=== PATIENT | male | born 1965 | race African-American/Black ===

== ENCOUNTER 2023-04-26 12:53 | Inpatient (IN) | payer OTHER ==
[2023-04-26 13:53] VITALS: BMI 19.6
[2023-04-26] MEDS ORDERED: LOPERAMIDE HCL 2 MG CAPSULE PO PRN (16:17)
[2023-04-26] MEDS ORDERED: NALOXONE HCL 0.4 MG/ML VIAL IM PRN (16:17)
[2023-04-26] MEDS ORDERED: NALOXONE HCL (KLOXXADO) 8 MG SPRAY NS PRN (16:17)
[2023-04-26] MEDS ORDERED: ONDANSETRON *ODT* 4 MG TABLET SL PRN (16:17)
[2023-04-26] MEDS ORDERED: hydrOXYzine PAMOATE 25 MG CAPSULE (FP) PO PRN (16:17)
[2023-04-26] MEDS ORDERED: BENZOCAINE/MENTHOL (CHLORASEPTIC ) LOZENGE MM PRN (16:17)
[2023-04-26] MEDS ORDERED: IBUPROFEN 400 MG TABLET (FP) PO PRN (16:17)
[2023-04-26] MEDS ORDERED: DICYCLOMINE HCL 10 MG CAPSULE PO PRN (16:17)
[2023-04-26] MEDS ORDERED: ACETAMINOPHEN 325 MG TABLET (FP) PO PRN (16:17)
[2023-04-26] MEDS ORDERED: POLYETHYLENE GLYCOL (HEALTHYLAX) 3350 17 GM PACKET PO PRN (16:17)
[2023-04-26] MEDS ORDERED: BISMUTH SUBSALICYLATE 524 MG/30 ML PO PRN (16:17)
[2023-04-26] MEDS ORDERED: BENZONATATE 200 MG CAPSULE PO PRN (16:17)
[2023-04-26] MEDS ORDERED: MAGNESIUM HYDROX 2400MG/30ML ORAL SUSPENSION 30 ML CUP PO PRN (16:17)
[2023-04-26] MEDS ORDERED: IBUPROFEN 600 MG TABLET (FP) PO PRN (16:17)
[2023-04-26] MEDS ORDERED: METHOCARBAMOL 500 MG TABLET PO PRN (16:17)
[2023-04-26] MEDS ORDERED: LORazepam 1 MG TABLET PO PRN (16:17)
[2023-04-26] MEDS ORDERED: guaiFENesin 600 MG TABLET.ER (FP) PO PRN (16:17)
[2023-04-26] MEDS ORDERED: MAG HYDROX/AL HYDROX/SIMETH 30 ML UNIT-DOSE CUP PO PRN (16:17)
[2023-04-26] MEDS: INSULIN SLIDING SCALE (NOVOLOG) 1 VIAL SQ SCH (18:15)
[2023-04-26] MEDS: PRENATAL VITAMINS W/ FOLIC ACID TABLET (FP) PO SCH (18:16)
[2023-04-26] MEDS ORDERED: PRENATAL VITAMINS W/ FOLIC ACID TABLET (FP) PO ONE (18:19)
[2023-04-26] MEDS ORDERED: MELATONIN 5 MG TABLETS PO SCH (22:00)
[2023-04-26] MEDS: LORazepam 2 MG TABLET PO SCH (22:08)
[2023-04-26] MEDS: THIAMINE HCL 100 MG TABLET (FP) PO SCH (22:08)
[2023-04-27] MEDS: LORazepam 2 MG TABLET PO SCH ×4 (05:43→22:59)
[2023-04-27] MEDS: INSULIN SLIDING SCALE (NOVOLOG) 1 VIAL SQ SCH ×3 (07:40→17:40)
[2023-04-27] MEDS: PRENATAL VITAMINS W/ FOLIC ACID TABLET (FP) PO SCH (09:48)
[2023-04-27] MEDS: QUEtiapine FUMARATE 50 MG TABLET PO SCH (10:17)
[2023-04-27] MEDS: DULoxetine HCL 60 MG CAPSULE.DR PO SCH (10:19)
[2023-04-27 11:49] LABS: HEMATOCRIT 35.9 % (35.4-49); HEMOGLOBIN 12.4 GM/dL (11.7-16.9); MCH 31.1 pg (25.7-33.7); MCHC 34.5 g/dl (32.0-35.9); MEAN CELL VOLUME 90.2 fl (80-96); PLATELET COUNT 308 10^3/uL (134-434); RBC 3.98 M/mm3 (4.00-5.60); RDW 13.9 % (11.9-15.9); WHITE BLOOD COUNT 4.5 K/mm3 (4.0-10.0)
[2023-04-27 12:03] LABS: POTASSIUM 4.6 mmol/L (3.5-5.1)
[2023-04-27 12:15] LABS: CALCIUM 9.2 mg/dL (8.5-10.1)
[2023-04-27 12:16] LABS: ALBUMIN 3.6 g/dl (3.4-5.0); BLOOD UREA NITROGEN 10.6 mg/dL (7-18)
[2023-04-27 12:18] LABS: CREATININE 0.9 mg/dL (0.55-1.3)
[2023-04-27 12:21] LABS: BILIRUBIN,TOTAL 0.5 mg/dL (0.2-1)
[2023-04-27] MEDS: LACTULOSE 20 GM/30 ML UDC (FOR ORAL USE ONLY) PO SCH ×2 (15:43→22:59)
[2023-04-27] MEDS: metFORMIN HCL 500 MG TABLET (FP) PO SCH (15:53)
[2023-04-27] MEDS: ATORVASTATIN CA 20 MG TABLET (FP) PO SCH (22:59)
[2023-04-27] MEDS: THIAMINE HCL 100 MG TABLET (FP) PO SCH (22:59)
[2023-04-27] MEDS: QUEtiapine FUMARATE 200 MG TABLET PO SCH (22:59)
[2023-04-27] MEDS: MELATONIN 5 MG TABLETS PO SCH (23:00)
[2023-04-28] MEDS: LORazepam 1 MG TABLET PO SCH ×4 (05:17→22:15)
[2023-04-28] MEDS: LACTULOSE 20 GM/30 ML UDC (FOR ORAL USE ONLY) PO SCH ×3 (05:17→22:15)
[2023-04-28] MEDS: INSULIN SLIDING SCALE (NOVOLOG) 1 VIAL SQ SCH ×3 (06:43→17:09)
[2023-04-28] MEDS: metFORMIN HCL 500 MG TABLET (FP) PO SCH (06:43)
[2023-04-28] MEDS: QUEtiapine FUMARATE 50 MG TABLET PO SCH (10:15)
[2023-04-28] MEDS: DULoxetine HCL 60 MG CAPSULE.DR PO SCH (10:16)
[2023-04-28] MEDS: PRENATAL VITAMINS W/ FOLIC ACID TABLET (FP) PO SCH (10:16)
[2023-04-28] MEDS ORDERED: INSULIN (NOVOLOG) ASPART 100 UNITS/ML 10ML VIAL ONE (16:42)
[2023-04-28] MEDS: THIAMINE HCL 100 MG TABLET (FP) PO SCH (22:15)
[2023-04-28] MEDS: ATORVASTATIN CA 20 MG TABLET (FP) PO SCH (22:15)
[2023-04-28] MEDS: QUEtiapine FUMARATE 200 MG TABLET PO SCH (22:15)
[2023-04-28] MEDS: MELATONIN 5 MG TABLETS PO SCH (22:15)
[2023-04-29] MEDS ORDERED: LORazepam 0.5 MG TABLET PO PRN
[2023-04-29] MEDS: LORazepam 0.5 MG TABLET PO SCH ×3 (05:32→17:11)
[2023-04-29] MEDS: LACTULOSE 20 GM/30 ML UDC (FOR ORAL USE ONLY) PO SCH ×2 (05:33→13:52)
[2023-04-29] MEDS: metFORMIN HCL 500 MG TABLET (FP) PO SCH (06:02)
[2023-04-29] MEDS: INSULIN SLIDING SCALE (NOVOLOG) 1 VIAL SQ SCH ×3 (06:03→17:12)
[2023-04-29] MEDS: QUEtiapine FUMARATE 50 MG TABLET PO SCH (10:13)
[2023-04-29] MEDS: PRENATAL VITAMINS W/ FOLIC ACID TABLET (FP) PO SCH (10:13)
[2023-04-29] MEDS: DULoxetine HCL 60 MG CAPSULE.DR PO SCH (10:15)
[2023-04-29 18:19] VITALS: BP 112/66; PULSE 83; RESP 17; TEMP 97.8
[2023-04-30] MEDS ORDERED: LORazepam 0.5 MG TABLET PO ONE (05:00)
== END 2023-04-29 17:10 | disposition home or self-care (01) | DRG 897 ==
LOC: YASAS 12:53 → Y6N 18:10
PROVIDERS: ADMIT Allergy & Immunology; ATTEND Surgery
PROC: HZ2ZZZZ Detoxification Services for Substance Abuse Treatment (ICD-10-PCS; principal; 2023-04-26)
DX: F10.230 Alcohol dependence with withdrawal, uncomplicated (principal); E72.20 Disorder of urea cycle metabolism, unspecified; F10.282 Alcohol dependence with alcohol-induced sleep disorder; F10.24 Alcohol dependence with alcohol-induced mood disorder; F31.9 Bipolar disorder, unspecified; E11.9 Type 2 diabetes mellitus without complications; Z79.84 Long term (current) use of oral hypoglycemic drugs; M19.012 Primary osteoarthritis, left shoulder; M54.50 Low back pain, unspecified; G89.29 Other chronic pain
CPT/HCPCS: 36415; 80053; 82140; 82962; 85027; 86780; 87635; 93005; 93010